=== PATIENT | female | born 1975 | race Two or more races ===

== ENCOUNTER 2016-07-20 01:10 | Emergency (ER) | payer OTHER ==
[~2016-07-20] VITALS: Ht 157.5 cm; Wt 77.1 kg
[~2016-07-20 01:10] MED LIST: CHOL10003 PO; CIPR500T94 PO; CLIN45GE TP; CYCL5TAB PO; DICY10CA3 PO; FERR325T31 PO; FERR325T58 PO; FOLI1TAB16 PO; HYDR-971 PO; HYDR25TA PO; HYDR25TA9 PO; LISI10TA2 PO; MESA1.2T PO; METO25TA9 PO; NAPR500T8 PO; OMEP40CA5 PO; ONDA4TAB10 SL; PANT40TA5 PO; POLY500P14 MC; TAMS0.4C97 PO; TOPI-24 PO; TRAM50TA PO; [UNRECOGNIZED DRUG - CODE] TP
[2016-07-20 01:20] VITALS: BP 150/83
[2016-07-20] MEDS ORDERED: PENI500T PO (01:51)
[2016-07-20] MEDS ORDERED: HYDR-2762 PO (01:51)
--- NOTE | 2016-07-20 01:51 | PHYS DOC ---
Past Medical History Past Medical History: Anemia, Hypertension Additional Past Medical Histor: CHOLITIS, BACK PROBLEMS Past Surgical History: Tubal ligation Additional Past Surgical Histo: KNEE SURGERY Alcohol Use: Rarely Drug Use: None Adult General Chief Complaint Chief Complaint: DENTAL PROBLEM [facility] HPI Patient is a 41 year old female who presents with complaint of dental pain and facial swelling. Patient states her facial swelling started last night and has worsened significantly this morning. Patient states that she broke a tooth approximately one month ago but did not start having pain until the past 2 days. Patient rates her pain currently as 7 out of 10. Patient denies any associated fevers. Patient states that she is having difficulty eating due to pain in her jaw. The patient states that she has been trying to contact her dentist over the past 3 days but has not been able to set up an appointment. Patient denies any shortness of breath, lightheadedness, or chest pain. Patient has not taken any medications to help with symptoms at this time. Review of Systems Review of Systems Constitutional: Denies fever or chills [] Eyes: Denies change in visual acuity, redness, or eye pain [] HENT: Denies nasal congestion or sore throat [] Respiratory: Denies cough or shortness of breath [] Cardiovascular: No additional information not addressed in HPI [] GI: Denies abdominal pain, nausea, vomiting, bloody stools or diarrhea [] : Denies dysuria or hematuria [] Musculoskeletal: Denies back pain or joint pain [] Integument: Denies rash or skin lesions [] Neurologic: Denies headache, focal weakness or sensory changes [] Endocrine: Denies polyuria or polydipsia [] Current Medications Current Medications Current Medications Medications (Trade) Dose Ordered Sig/Leni Start Time Stop Time Status Last Admin Dose Admin Acetaminophen/ Hydrocodone Bitart (Lortab 7.5/325) 1 tab 1X ONCE 07/20/16 02:15 07/20/16 02:15 DC 07/20/16 02:02 1 TAB Penicillin V Potassium (Veetid) 500 mg 1X ONCE 07/20/16 02:15 07/20/16 02:15 DC 07/20/16 02:01 500 MG Allergies Allergies Allergies Coded Allergies Type Severity Reaction Last Updated Verified No Known Drug Allergies 06/02/15 No Physical Exam Physical Exam Constitutional: Alert, afebrile, appears in mild discomfort. [] HENT: Mild left zygomatic soft tissue swelling, bilateral external ears normal, oropharynx moist, direct tenderness to palpation over tooth #12, no gingival fluctuance noted, no oral exudates, nose normal. [] Eyes: PERRLA, EOMI, conjunctiva normal, no discharge. [] Neck: Normal range of motion, no tenderness, supple, no stridor. [] Cardiovascular:Heart rate regular rhythm, no murmur [] Lungs & Thorax: Bilateral breath sounds clear to auscultation [] Abdomen: Bowel sounds normal, soft, no tenderness, no masses, no pulsatile masses. [] Skin: Warm, dry, no erythema, no rash. [] Extremities: No tenderness, no cyanosis, no clubbing, ROM intact, no edema. [] Neurologic: Alert and oriented X 3, normal motor function, normal sensory function, no focal deficits noted. [] Current Patient Data Vital Signs Vital Signs Date Time Temp Pulse Resp B/P Pulse Ox O2 Delivery O2 Flow Rate FiO2 07/20/16 02:02 20 99 Room Air 07/20/16 01:20 98.3 74 98.3 EKG EKG Not performed [] Radiology/Procedures Radiology/Procedures Not performed [] Course & Med Decision Making Course & Med Decision Making Pertinent Labs and Imaging studies reviewed. (See chart for details) Patient started on penicillin VK and [place]. The patient be prescribed these medications for treatment of early apical abscess. Advised follow-up with the patient's dentist in the next 3 days. Recommended return to emergency department for any worsening symptoms. Patient voiced understanding and in agreement with treatment plan. Dragon Disclaimer Dragon Disclaimer This electronic medical record was generated, in whole or in part, using a voice recognition dictation system. Departure Departure Impression: Primary Impression: Dental abscess Disposition: HOME, SELF-CARE Condition: IMPROVED Referrals: WAYNE NEWMAN MD (PCP) Patient Instructions: Dental Abscess Additional Instructions: Follow-up with your dentist in the next 3 days. Return to emergency department for any worsening symptoms. Scripts Hydrocodone Bit/Acetaminophen (Hydrocodone-Apap 7.5-325 )1 Each Tablet1 Tab PO Q4-6HRS PRN PAIN #20 TAB Ref 0 Prov:AJIT SULLIVAN MD 07/20/16 Penicillin V Potassium 500 Mg Tablet1 Tab PO QID #40 TAB Prov:AJIT SULLIVAN MD 07/20/16 AJIT SULLIVAN MD Jul 20, 2016 01:51
[2016-07-20] MEDS ORDERED: PENICILLIN V K 250 MG TABLET. PO ONE (02:15)
[2016-07-20] MEDS ORDERED: HYDROCODONE/APAP 7.5/325MG TABLET. PO ONE (02:15)
== END 2016-07-20 02:05 | disposition home or self-care (01) ==
LOC: ER 01:10
DX: K04.7 Periapical abscess without sinus (principal); I10 Essential (primary) hypertension
CPT/HCPCS: 99283

== ENCOUNTER 2017-03-12 21:48 | Emergency (ER) | payer OTHER ==
[~2017-03-12] VITALS: Ht 157.5 cm; Wt 81.6 kg
[~2017-03-12 21:48] MED LIST changes: +FERR-36 PO; -FERR325T31 PO; +HYDR-2762 PO; +METO-239 PO; -METO25TA9 PO; +PENI500T PO; -TOPI-24 PO; +TOPI25TA7 PO
--- NOTE | 2017-03-12 21:52 | PHYS DOC ---
Past Medical History Past Medical History: Anemia, Hypertension Additional Past Medical Histor: CHOLITIS, BACK PROBLEMS Past Surgical History: Tubal ligation Additional Past Surgical Histo: KNEE SURGERY Alcohol Use: Rarely Drug Use: None Adult General Chief Complaint Chief Complaint: ABDOMINAL PAIN HPI HPI Patient is a 41 year old female who presents with right-sided flank pain radiating down into her pelvis this started this morning. She states his been constant. She's had some nausea but denies any vomiting. She had a normal bowel movement this morning denies any blood in her stools. She states she's had a history kidney stones and colitis in the past. She denies any chest pain or shortness of breath. She denies any vaginal bleeding, she does state she has troubles urinating and has an appointment to see a consulting services project manager urologist in a week. Review of Systems Review of Systems Constitutional: Denies fever or chills [] Eyes: Denies change in visual acuity, redness, or eye pain [] HENT: Denies nasal congestion or sore throat [] Respiratory: Denies cough or shortness of breath [] Cardiovascular: No additional information not addressed in HPI [] GI: Denies abdominal pain, nausea, vomiting, bloody stools or diarrhea [] : Denies dysuria or hematuria [] Musculoskeletal: Denies back pain or joint pain [] Integument: Denies rash or skin lesions [] Neurologic: Denies headache, focal weakness or sensory changes [] Endocrine: Denies polyuria or polydipsia [] Current Medications Current Medications Current Medications Medications (Trade) Dose Ordered Sig/Leni Start Time Stop Time Status Last Admin Dose Admin Albuterol/ Ipratropium (Duoneb) 3 ml 1X ONCE 03/12/17 23:45 03/12/17 23:45 DC Ceftriaxone Sodium 50 ml @ 100 mls/hr 1X ONCE 03/12/17 23:00 03/12/17 23:29 DC 03/12/17 23:23 100 MLS/HR Info (Do NOT chart on this entry -- for MONITORING) 1 each PRN DAILY PRN 03/12/17 23:15 03/14/17 23:14 Iohexol (Omnipaque 300 Mg/ml) 75 ml 1X ONCE 03/12/17 23:15 03/12/17 23:16 DC 03/12/17 23:07 75 ML Morphine Sulfate 2 mg PRN Q15MIN PRN 03/12/17 22:15 03/13/17 22:14 03/12/17 22:16 2 MG Ondansetron HCl (Zofran) 4 mg 1X ONCE 03/12/17 22:15 03/12/17 22:16 DC 03/12/17 22:15 4 MG Sodium Chloride 1,000 ml @ 1,000 mls/hr Q1H 03/12/17 22:15 03/12/17 23:14 DC 03/12/17 22:28 1,000 MLS/HR Allergies Allergies Allergies Coded Allergies Type Severity Reaction Last Updated Verified No Known Drug Allergies 06/02/15 No Physical Exam Physical Exam Constitutional: Well developed, well nourished, no acute distress, non-toxic appearance. [] HENT: Normocephalic, atraumatic, bilateral external ears normal, oropharynx moist, no oral exudates, nose normal. [] Eyes: PERRLA, EOMI, conjunctiva normal, no discharge. [] Neck: Normal range of motion, no tenderness, supple, no stridor. [] Cardiovascular:Heart rate regular rhythm, no murmur [] Lungs & Thorax: Bilateral breath sounds clear to auscultation [] Abdomen: Bowel sounds normal, soft, tender to palpation in the right flank radiating down into the right lower quadrant, no masses, no pulsatile masses. [ ] Skin: Warm, dry, no erythema, no rash. [] Back: No tenderness, right sided CVA tenderness. [] Extremities: No tenderness, no cyanosis, no clubbing, ROM intact, no edema. [] Neurologic: Alert and oriented X 3, normal motor function, normal sensory function, no focal deficits noted. [] Psychologic: Affect normal, judgement normal, mood normal. [] Current Patient Data Vital Signs Vital Signs Date Time Temp Pulse Resp B/P (MAP) Pulse Ox O2 Delivery O2 Flow Rate FiO2 03/12/17 23:29 70 22 141/80 (100) 99 Room Air 03/12/17 22:02 98.5 98.5 Lab Values Laboratory Tests Test 03/12/17 21:06 03/12/17 21:59 03/12/17 22:20 POC Urine HCG, Qualitative Hcg negative (Negative) Urine Collection Type Unknown Urine Color Yellow Urine Clarity Clear Urine pH 7.0 Urine Specific Smyer <=1.005 Urine Protein 30 mg/dL (NEG-TRACE) Urine Glucose (UA) Negative mg/dL (NEG) Urine Ketones (Stick) Negative mg/dL (NEG) Urine Blood Small (NEG) Urine Nitrite Negative (NEG) Urine Bilirubin Negative (NEG) Urine Urobilinogen Dipstick 0.2 mg/dL (0.2 mg/dL) Urine Leukocyte Esterase Large (NEG) Urine RBC 3-5 /HPF (0-2) Urine WBC >40 /HPF (0-4) Urine Squamous Epithelial Cells Few /LPF Urine Bacteria Few /HPF (0-FEW) White Blood Count 12.0 x10^3/uL (4.0-11.0) H Red Blood Count 4.29 x10^6/uL (3.50-5.40) Hemoglobin 10.0 g/dL (12.0-15.5) L Hematocrit 31.3 % (36.0-47.0) L Mean Corpuscular Volume 73 fL (79-100) L Mean Corpuscular Hemoglobin 23 pg (25-35) L Mean Corpuscular Hemoglobin Concent 32 g/dL (31-37) Red Cell Distribution Width 17.6 % (11.5-14.5) H Platelet Count 293 x10^3/uL (140-400) Neutrophils (%) (Auto) 55 % (31-73) Lymphocytes (%) (Auto) 19 % (24-48) L Monocytes (%) (Auto) 5 % (0-9) Eosinophils (%) (Auto) 21 % (0-3) H Basophils (%) (Auto) 1 % (0-3) Neutrophils # (Auto) 6.6 x10^3uL (1.8-7.7) Lymphocytes # (Auto) 2.3 x10^3/uL (1.0-4.8) Monocytes # (Auto) 0.6 x10^3/uL (0.0-1.1) Eosinophils # (Auto) 2.5 x10^3/uL (0.0-0.7) H Basophils # (Auto) 0.1 x10^3/uL (0.0-0.2) Segmented Neutrophils % 49 % (35-66) Lymphocytes % 22 % (24-48) L Monocytes % 1 % (0-10) Eosinophils % 26 % (0-5) H Basophils % 2 % (0-3) Toxic Granulation Slight Platelet Estimate Adequate (ADEQUATE) Polychromasia Slight Hypochromasia Mod Anisocytosis Slight Microcytosis Mod Sodium Level 138 mmol/L (136-145) Potassium Level 3.7 mmol/L (3.5-5.1) Chloride Level 102 mmol/L (98-107) Carbon Dioxide Level 24 mmol/L (21-32) Anion Gap 12 (6-14) Blood Urea Nitrogen 12 mg/dL (7-20) Creatinine 0.8 mg/dL (0.6-1.0) Estimated GFR (Cockcroft-Gault) 78.7 Glucose Level 102 mg/dL (70-99) H Calcium Level 8.9 mg/dL (8.5-10.1) Total Bilirubin 0.2 mg/dL (0.2-1.0) Direct Bilirubin < 0.1 mg/dL (0.0-0.2) Aspartate Amino Transferase (AST) 21 U/L (15-37) Alanine Aminotransferase (ALT) 23 U/L (14-59) Alkaline Phosphatase 118 U/L (46-116) H Total Protein 8.2 g/dL (6.4-8.2) Albumin 3.7 g/dL (3.4-5.0) Laboratory Tests 03/12/17 22:20 Laboratory Tests 03/12/17 22:20 EKG EKG [] Radiology/Procedures Radiology/Procedures [facility] [address] [place] [address] IMAGING REPORT Signed PATIENT: CHIDI ERVIN ACCOUNT: [id number] : 1975 LOCATION: ER AGE: 41 SEX: F EXAM STATUS: REG ER ORD. PHYSICIAN: PRICE JOHNSON MD REASON: right sided abdominal pain PROCEDURE: CT ABD PELV W/ IV CONTRST ONLY CT ABD PELV W/ IV CONTRST ONLY dated 03/12/2017 11:06 PM Indication: Abdominal pain, nausea right-sided pain. Comparison: 01/13/2016 Technique: Contiguous axial imaging of the abdomen and pelvis performed after the administration of 75 cc Omnipaque 300. One or more of the following individualized dose reduction techniques were utilized for this examination: 1. Automated exposure control 2. Adjustment of the mA and/or kV according to patient size 3. Use of iterative reconstruction technique Findings: Limited images of lung bases are clear. Heart size within normal limits. No pleural or pericardial effusion. Liver, spleen, gallbladder, adrenal glands unremarkable. The pancreas is somewhat small and atrophic. No significant peripancreatic inflammatory stranding. There are collateral vessels at the splenic hilum. Portal vein and SMV are patent. There is mild right-sided hydronephrosis with proximal hydroureter. There is urothelial thickening and enhancement along the proximal right ureter. The mid to distal right ureter is not well visualized. There is no apparent calcific stone. No left-sided hydronephrosis or hydroureter. The right kidney is somewhat atrophic relative to the left side. Unopacified GI tract normal in caliber and contour. No focal bowel wall thickening. No inflammatory stranding in the mesentery. The appendix is normal in caliber. Images of the pelvis show mildly distended urinary bladder. No significant bladder wall thickening. Uterus and adnexa are unremarkable. No free fluid or lymphadenopathy. Bone windows show no acute findings. IMPRESSION: 1. Mild right-sided hydronephrosis, hydroureter and urothelial thickening, nonspecific. There is no calcific stone. Consider acute pyelonephritis or ascending ureteritis or chronic reflux. Right kidney is somewhat atrophic. 2. Otherwise no acute findings. Normal appendix. 3. Pancreatic atrophy could be related to prior episodes of pancreatitis. No acute inflammatory changes at this time. Electronically signed by: Gio Harris MD (03/12/2017 11:41 PM) [facility] DICTATED and SIGNED BY: GIO HARRIS MD DATE: 03/12/17 [id number] CC: PRICE JOHNSON MD; WAYNE NEWMAN MD ~ Impressions: Pyelonephritis Course & Med Decision Making Course & Med Decision Making Pertinent Labs and Imaging studies reviewed. (See chart for details) CT scan shows likely pyelonephritis without any stones or colitis. Also consistent with this. Patient feels better after a gram of Rocephin being discharged with 10 days of Levaquin and ODT Zofran. She has a follow-up appointment with nephrology that she's had set up prior. Return precautions given she is agreeable to the plan and being discharged in stable condition this time. Dragon Disclaimer Dragon Disclaimer This electronic medical record was generated, in whole or in part, using a voice recognition dictation system. Departure Departure Impression: Primary Impression: Pyelonephritis Disposition: 01 HOME, SELF-CARE Condition: STABLE Referrals: WAYNE NEWMAN MD (PCP) Patient Instructions: Pyelonephritis, Adult, [id number] Additional Instructions: You were seen tonight for your abdominal pain in your urine shows signs of infection, the CAT scan does not show any signs of colitis but it shows that you likely have a kidney infection. You were given IV antibiotics and your being discharged home with antibiotics for the next 10 days. Please follow-up with your consulting services project manager that you have an appointment with next week. If your pain gets worse you have uncontrolled nausea vomiting or other concerns please return back to emergency department. He also being discharged with some antinausea meds in case she need them. Scripts Ondansetron (ZOFRAN ODT) 4 Mg Tab.rapdis 1 TAB SL Q8HRS, #5 TAB Prov: PRICE JOHNSON MD 03/13/17 Levofloxacin (LEVAQUIN) 500 Mg Tablet 1 TAB PO DAILY, #10 TAB Prov: PRICE JOHNSON MD 03/13/17 PRICE JOHNSON MD Mar 12, 2017 21:52
[2017-03-12 22:10] LABS: BILIRUBIN,URINE NEGATIVE (NEG); GLUCOSE,URINE NEGATIVE (NEG); NITRITE,URINE NEGATIVE (NEG); PROTEIN,URINE 30 mg/dL (NEG-TRACE); UROBILINOGEN,URINE 0.2 mg/dL (0.2 mg/dL)
[2017-03-12] MEDS ORDERED: MORPHINE SULFATE 2 MG/ML DISP.SYRIN. IV/SQ PRN (22:15)
[2017-03-12] MEDS ORDERED: ONDANSETRON PF 4 MG/2 ML VIAL. IV ONE (22:15)
[2017-03-12] MEDS ORDERED: IV NORMAL SALINE 1000ML BAG 1,000 ML IV SCH (22:15)
[2017-03-12 22:17] LABS: BACTERIA,URINE FEW /HPF (0-FEW); SQUAMOUS EPITHELIAL CELL,UR FEW /LPF; WBC,URINE >40 /HPF (0-4)
[2017-03-12] MEDS ORDERED: NALT1TAB PO (22:22)
[2017-03-12] MEDS ORDERED: LEVO25TA4 PO (22:22)
[2017-03-12] MEDS ORDERED: HYDR25TA9 PO (22:22)
[2017-03-12] MEDS ORDERED: DOCU100C28 PO (22:22)
[2017-03-12] MEDS ORDERED: AMIT50TA PO (22:22)
[2017-03-12] MEDS ORDERED: MESA1.2T PO (22:22)
[2017-03-12] MEDS ORDERED: CITA20TA5 PO (22:22)
[2017-03-12 22:36] LABS: BASO # 0.1 x10^3/uL (0.0-0.2); BASO % 1 % (0-3); EOS % 21 % (0-3); HEMATOCRIT 31.3 % (36.0-47.0); LYMPH # 2.3 x10^3/uL (1.0-4.8); LYMPH % 19 % (24-48); MEAN CORPUSCULAR HEMOGLOBIN 23 pg (25-35); MEAN CORPUSCULAR HGB CONC 32 g/dL (31-37); MEAN CORPUSCULAR VOLUME 73 fL (79-100); MONO % 5 % (0-9); NEUT % 55 % (31-73); PLATELET COUNT 293 x10^3/uL (140-400); RED BLOOD COUNT 4.29 x10^6/uL (3.50-5.40); RED CELL DISTRIBUTION WIDTH 17.6 % (11.5-14.5)
[2017-03-12 22:52] LABS: ANION GAP 12 (6-14); BLOOD UREA NITROGEN 12 mg/dL (7-20); CALCIUM 8.9 mg/dL (8.5-10.1); CARBON DIOXIDE 24 mmol/L (21-32); CHLORIDE 102 mmol/L (98-107); CREATININE 0.8 mg/dL (0.6-1.0); GFR 78.7; GLUCOSE 102 mg/dL (70-99); POTASSIUM 3.7 mmol/L (3.5-5.1); SODIUM 138 mmol/L (136-145)
[2017-03-12 22:55] LABS: % BASOS 2 % (0-3); % EOS 26 % (0-5)
[2017-03-12 22:57] LABS: ALBUMIN 3.7 g/dL (3.4-5.0); ALK PHOS 118 U/L (46-116); ALT (SGPT) 23 U/L (14-59); AST (SGOT) 21 U/L (15-37); DIRECT BILIRUBIN < 0.1 mg/dL (0.0-0.2); TOTAL BILIRUBIN 0.2 mg/dL (0.2-1.0); TOTAL PROTEIN 8.2 g/dL (6.4-8.2)
[2017-03-12 22:59] LABS: ANISOCYTOSIS SLIGHT; HYPOCHROMIA MOD; MICROCYTOSIS MOD; PLT ESTIMATE ADEQUATE (ADEQUATE); POLYCHROMASIA SLIGHT; TOXIC GRANULATION SLIGHT
[2017-03-12] MEDS ORDERED: CONTRAST GIVEN MC PRN (23:15)
[2017-03-12] MEDS ORDERED: IOHEXOL 300 MG/ML 75 ML VIAL IV ONE (23:15)
[2017-03-12 23:29] VITALS: BP 141/80
--- NOTE | 2017-03-12 23:44 | RAD ---
CT ABD PELV W/ IV CONTRST ONLY dated 03/12/2017 11:06 PM Indication: Abdominal pain, nausea right-sided pain. Comparison: 01/13/2016 Technique: Contiguous axial imaging of the abdomen and pelvis performed after the administration of 75 cc Omnipaque 300. One or more of the following individualized dose reduction techniques were utilized for this examination: 1. Automated exposure control 2. Adjustment of the mA and/or kV according to patient size 3. Use of iterative reconstruction technique Findings: Limited images of lung bases are clear. Heart size within normal limits. No pleural or pericardial effusion. Liver, spleen, gallbladder, adrenal glands unremarkable. The pancreas is somewhat small and atrophic. No significant peripancreatic inflammatory stranding. There are collateral vessels at the splenic hilum. Portal vein and SMV are patent. There is mild right-sided hydronephrosis with proximal hydroureter. There is urothelial thickening and enhancement along the proximal right ureter. The mid to distal right ureter is not well visualized. There is no apparent calcific stone. No left-sided hydronephrosis or hydroureter. The right kidney is somewhat atrophic relative to the left side. Unopacified GI tract normal in caliber and contour. No focal bowel wall thickening. No inflammatory stranding in the mesentery. The appendix is normal in caliber. Images of the pelvis show mildly distended urinary bladder. No significant bladder wall thickening. Uterus and adnexa are unremarkable. No free fluid or lymphadenopathy. Bone windows show no acute findings. IMPRESSION: 1. Mild right-sided hydronephrosis, hydroureter and urothelial thickening, nonspecific. There is no calcific stone. Consider acute pyelonephritis or ascending ureteritis or chronic reflux. Right kidney is somewhat atrophic. 2. Otherwise no acute findings. Normal appendix. 3. Pancreatic atrophy could be related to prior episodes of pancreatitis. No acute inflammatory changes at this time. Electronically signed by: Gio Harris MD (03/12/2017 11:41 PM) [facility]
[2017-03-12] MEDS ORDERED: IPRATRPIUM/ALBUTEROL 0.5/2.5MG 3 ML NEBU. NEB ONE (23:45)
[2017-03-13] MEDS ORDERED: ONDA4TAB10 SL (00:02)
[2017-03-13] MEDS ORDERED: LEVO500T59 PO (00:02)
== END 2017-03-13 00:12 | disposition home or self-care (01) ==
LOC: ER 21:48
DX: N12 Tubulo-interstitial nephritis, not specified as acute or chronic (principal); I10 Essential (primary) hypertension; Z87.442 Personal history of urinary calculi; Z98.51 Tubal ligation status
CPT/HCPCS: 36415; 74177; 80048; 80076; 81001; 81025; 85007; 85025; 87086; 87186; 96365; 96375; 99285; J0690; J2270; J2405; J7030; Q9967

== ENCOUNTER 2020-04-01 20:59 | Emergency (ER) | payer SELFPAY ==
[~2020-04-01] VITALS: Ht 157.5 cm; Wt 85.5 kg
[~2020-04-01 20:59] MED LIST changes: +AMIT50TA PO; +CITA20TA6 PO; +DOCU100C28 PO; +HYDR-2145 PO; -HYDR-2762 PO; +HYDR-2765 PO; +HYDR-3164 PO; -HYDR-971 PO; -HYDR25TA9 PO; +LEVO25TA4 PO; +LEVO500T59 PO; +LIALDA1.2 GM PO; -MESA1.2T PO; +NALT1TAB PO; +OMEP40CA45 PO; -OMEP40CA5 PO; -PANT40TA5 PO; +PANT40TA77 PO
[2020-04-01 21:03] VITALS: BP 175/70
[2020-04-01] MEDS ORDERED: CYCL5TAB PO (21:19)
[2020-04-01] MEDS ORDERED: LIDO700A21 TP (21:19)
[2020-04-01] MEDS ORDERED: IBUP-1007 PO (21:19)
--- NOTE | 2020-04-01 21:19 | PHYS DOC ---
Past Medical History Past Medical History: Anemia, Hypertension, Kidney Stone Additional Past Medical Histor: CHOLITIS, BACK PROBLEMS Past Surgical History: Tubal ligation Additional Past Surgical Histo: KNEE SURGERY Smoking Status: Never Smoker Alcohol Use: Rarely Drug Use: None General Adult EDM: Chief Complaint: BACK PAIN - NO INJURY HPI: HPI: The history was obtained from the patient. Patient is a 44-year-old female with PMH chronic back pain who presents with a chief complaint of acute on chronic back pain. Patient states 3 days ago while sweeping and cleaning she strained her back. States she was moving a heavy object she states. She notes pain starting in her right paraspinal region of the lumbar area that radiates down her right leg. States this is similar to previous pain. She has tried 3 ibuprofen tablets with minimal relief. Denies urinary symptoms. Denies syncope. Does show me an MRI paper from an outpatient study that does show mild disc bulging at the L3-L4 region. No other pathology identified on her MRI imaging. Denies chest pain or shortness of breath. States the pain is aching in nature as well as shooting. Made worse with movement. Patient denies any urinary retention, stool incontinence, saddle anesthesia, history of IV drug use, or history of cancer. Review of Systems: Review of Systems: Constitutional: Denies fever or chills. [] Eyes: Denies change in visual acuity. [] HENT: Denies nasal congestion or sore throat. [] Respiratory: Denies cough or shortness of breath. [] Cardiovascular: Denies chest pain or edema. [] GI: Denies abdominal pain, nausea, vomiting, bloody stools or diarrhea. [] : Denies dysuria. [] Musculoskeletal: Positive for back pain Integument: Denies rash. [] Neurologic: Denies headache, focal weakness or sensory changes. [] Endocrine: Denies polyuria or polydipsia. [] Lymphatic: Denies swollen glands. [] Psychiatric: Denies depression or anxiety. [] Heart Score: Risk Factors: Risk Factors: DM, Current or recent (<one month) smoker, HTN, HLP, family history of CAD, obesity. Risk Scores: Score 0 - 3: 2.5% MACE over next 6 weeks - Discharge Home Score 4 - 6: 20.3% MACE over next 6 weeks - Admit for Clinical Observation Score 7 - 10: 72.7% MACE over next 6 weeks - Early Invasive Strategies Allergies: Allergies: Allergies Coded Allergies Type Severity Reaction Last Updated Verified No Known Drug Allergies 06/02/15 No Physical Exam: PE: Constitutional: Well developed, well nourished, no acute distress, non-toxic appearance. [] HENT: Normocephalic, atraumatic, bilateral external ears normal, oropharynx moist, no oral exudates, nose normal. [] Eyes: PERRLA, EOMI, conjunctiva normal, no discharge. [] Neck: Normal range of motion, no tenderness, supple, no stridor. [] Cardiovascular:Heart rate regular rhythm, no murmur [] Lungs & Thorax: Bilateral breath sounds clear to auscultation [] Abdomen: soft, no tenderness, no masses, no pulsatile masses. [] Skin: Warm, dry, no erythema, no rash. [] Back: + 5/5 motor strength in dorsiflexion and plantarflexion of the great toes bilaterally. Sensation intact between the webbing of the first and second toes bilaterally. Reproducible right paraspinal lumbar tenderness to palpation. Hypertonic musculature palpated. Extremities: No tenderness, no cyanosis, no clubbing, ROM intact, no edema. [] Neurologic: Alert and oriented X 3, normal motor function, normal sensory function, no focal deficits noted. [] Psychologic: Affect normal, judgement normal, mood normal. [] EKG: EKG: [] Radiology/Procedures: Radiology/Procedures: [] Course & Med Decision Making: Course & Med Decision Making Pertinent Labs and Imaging studies reviewed. (See chart for details) [] Patient is a well-appearing 44-year-old female presents with chief complaint of acute on chronic right-sided back pain. No red flag signs or symptoms regarding her back pain. Imaging will be deferred given the nontraumatic nature of her injuries. Urinalysis will also be deferred given she has no symptoms. She was treated symptomatically in the emergency department and did get relief. She will be discharged home with medication. She was instructed to follow-up with her primary care physician in the next 2 to 3 days. Return precautions discussed and understood. She is stable for discharge home. Brisa Disclaimer: Brisa Disclaimer: This electronic medical record was generated, in whole or in part, using a voice recognition dictation system. Departure Departure Impression: Primary Impression: Acute exacerbation of chronic low back pain Disposition: HOME, SELF-CARE Condition: STABLE Referrals: WAYNE NEWMAN MD (PCP) Patient Instructions: Back Exercises, Back Pain, Adult Additional Instructions: Please follow-up with your primary care physician in the next 2 to 3 days. Scripts Lidocaine (Lidocaine PATCH ) 1 Each Adh..patch 1 EACH TP DAILY for FOR LOCAL PAIN for 5 Days, #5 PATCH REMOVE AFTER 12 HOURS. 4% Prov: NILAM HOOD DO 04/01/20 Ibuprofen (IBUPROFEN) 600 Mg Tablet 600 MG PO PRN Q6HRS PRN for PAIN, #20 TAB take with food or milk Prov: NILAM HOOD DO 04/01/20 Cyclobenzaprine Hcl (CYCLOBENZAPRINE HCL) 5 Mg Tablet 5 MG PO PRN TID PRN for PAIN, #10 TAB Prov: NILAM HOOD DO 04/01/20 NILAM HOOD DO Apr 01, 2020 21:19
[2020-04-01] MEDS ORDERED: LIDOCAINE (700MG/PATCH) PATCH. TD ONE (21:30)
[2020-04-01] MEDS ORDERED: KETOROLAC 30 MG/ML VIAL. IM ONE (21:30)
[2020-04-01] MEDS ORDERED: diazePAM 5 MG TABLET PO ONE (21:30)
== END 2020-04-01 21:37 | disposition home or self-care (01) ==
LOC: ER 20:59
DX: G89.29 Other chronic pain (principal); M54.5 Low back pain; I10 Essential (primary) hypertension; Z87.442 Personal history of urinary calculi; Z98.51 Tubal ligation status
CPT/HCPCS: 96372; 99283; J1885

== ENCOUNTER 2020-04-17 17:38 | Emergency (ER) | payer SELFPAY ==
[~2020-04-17] VITALS: Ht 157.5 cm; Wt 85.0 kg
[~2020-04-17 17:38] MED LIST changes: +IBUP-1007 PO; +LIDO700A21 TP
[2020-04-17 19:16] VITALS: BP 157/88
[2020-04-17 20:03] LABS: BILIRUBIN,URINE SMALL (NEG); CLARITY,URINE CLOUDY; COLOR,URINE RED; NITRITE,URINE POSITIVE (NEG); PROTEIN,URINE 100 mg/dL (NEG-TRACE)
[2020-04-17 20:07] LABS: RBC,URINE TNTC /HPF (0-2)
[2020-04-17 20:09] LABS: BACTERIA,URINE FEW /HPF (0-FEW); HYALINE CASTS, URINE OCCASIONAL /HPF
[2020-04-17] MEDS ORDERED: methylPREDNISolone SOD SUCC PF 125 MG/2 ML VIAL. IM ONE (20:30)
[2020-04-17] MEDS ORDERED: KETOROLAC 60 MG/2 ML VIAL. IM ONE (20:30)
[2020-04-17] MEDS ORDERED: HYDROcodone/APAP 5/325MG 1 TAB TABLET PO ONE (20:30)
[2020-04-17] MEDS ORDERED: TRAM-48 PO (20:32)
[2020-04-17] MEDS ORDERED: NAPR-683 PO (20:32)
[2020-04-17] MEDS ORDERED: METH4TAB2 PO (20:32)
--- NOTE | 2020-04-17 20:32 | PHYS DOC ---
Past Medical History Past Medical History: Anemia, Hypertension, Hyperthyroid, Kidney Stone Additional Past Medical Histor: COLITIS, BACK PROBLEMS Past Surgical History: Tubal ligation Additional Past Surgical Histo: KNEE SURGERY Smoking Status: Never Smoker Alcohol Use: Rarely Drug Use: None General Adult EDM: Chief Complaint: BACK PAIN - NO INJURY HPI: HPI: Patient is a 44 year old female presents with a chief complaint of back pain. Patient states her current back pain is chronic in nature. Is located mid thora cic and lumbar. Patient states onset of her pain either or Sunday. She states at the time she was cleaning her birdcage when pain suddenly started. Patient's pain again is midthoracic and lumbar region. Patient states she has pain that radiates down both legs. Patient states she feels as if her right hip is swelling and the pain radiates down her right leg. Patient states she has some numbness and tingling down her left leg. Patient states she was prescribed ibuprofen and a muscle relaxant and has had no relief with these medications. Patient denies any saddle anesthesia or loss of bowel or bladder. Patient ambulated into the ER with a normal steady gait. Again patient states current pain is chronic and similar to previous exacerbations. Patient will be treated with Solu-Medrol and hydrocodone in the emergency department. She will be prescribed naproxen and Medrol Dosepak hydrocodone and advised to take previously prescribed muscle relaxant. Review of Systems: Review of Systems: Constitutional: Denies fever or chills. [] Eyes: Denies change in visual acuity. [] HENT: Denies nasal congestion or sore throat. [] Respiratory: Denies cough or shortness of breath. [] Cardiovascular: Denies chest pain or edema. [] GI: Denies abdominal pain, nausea, vomiting, bloody stools or diarrhea. [] : Denies dysuria. [] Musculoskeletal: Positive back pain Integument: Denies rash. [] Neurologic: Denies headache, focal weakness or sensory changes. [Positive paresthesia] Endocrine: Denies polyuria or polydipsia. [] Lymphatic: Denies swollen glands. [] Psychiatric: Denies depression or anxiety. [] Heart Score: Risk Factors: Risk Factors: DM, Current or recent (<one month) smoker, HTN, HLP, family history of CAD, obesity. Risk Scores: Score 0 - 3: 2.5% MACE over next 6 weeks - Discharge Home Score 4 - 6: 20.3% MACE over next 6 weeks - Admit for Clinical Observation Score 7 - 10: 72.7% MACE over next 6 weeks - Early Invasive Strategies Allergies: Allergies: Allergies Coded Allergies Type Severity Reaction Last Updated Verified No Known Drug Allergies 06/02/15 No Physical Exam: PE: Constitutional: Well developed, well nourished, no acute distress, non-toxic appearance. [] HENT: Normocephalic, atraumatic, bilateral external ears normal, oropharynx moist, no oral exudates, nose normal. [] Eyes: PERRLA, EOMI, conjunctiva normal, no discharge. [] Neck: Normal range of motion, no tenderness, supple, no stridor. [] Cardiovascular:Heart rate regular rhythm, no murmur [] Lungs & Thorax: Bilateral breath sounds clear to auscultation [] Abdomen: Bowel sounds normal, soft, no tenderness, no masses, no pulsatile masses. [] Skin: Warm, dry, no erythema, no rash. [] Back: No tenderness, no CVA tenderness. [] Extremities: No tenderness, no cyanosis, no clubbing, ROM intact, no edema. [Ambulates with a steady gait. ] Neurologic: Alert and oriented X 3, normal motor function, normal sensory function, no focal deficits noted. [No saddle anesthesia no loss of bowel or bladder ambulates with a steady gait] Psychologic: Affect normal, judgement normal, mood normal. [] Current Patient Data: Labs: Laboratory Tests Test 04/17/20 19:55 04/17/20 20:07 Urine Collection Type Unknown Urine Color Red Urine Clarity Cloudy Urine pH 8.0 (<5.0-8.0) Urine Specific Ava 1.025 (1.000-1.030) Urine Protein 100 mg/dL (NEG-TRACE) Urine Glucose (UA) Negative mg/dL (NEG) Urine Ketones (Stick) Trace mg/dL (NEG) Urine Blood Large (NEG) Urine Nitrite Positive (NEG) Urine Bilirubin Small (NEG) Urine Urobilinogen Dipstick 1.0 mg/dL (0.2 mg/dL) Urine Leukocyte Esterase Moderate (NEG) Urine RBC Tntc /HPF (0-2) Urine WBC 11-20 /HPF (0-4) Urine Squamous Epithelial Cells Few /LPF Urine Bacteria Few /HPF (0-FEW) Urine Hyaline Casts Occasional /HPF Urine Mucus Mod /LPF POC Urine HCG, Qualitative Hcg negative (Negative) Vital Signs: Vital Signs Date Time Temp Pulse Resp B/P (MAP) Pulse Ox O2 Delivery O2 Flow Rate FiO2 04/17/20 19:16 98.3 65 18 157/88 (111) 100 Room Air 98.3 EKG: EKG: [] Radiology/Procedures: Radiology/Procedures: [] Course & Med Decision Making: Course & Med Decision Making Pertinent Labs and Imaging studies reviewed. (See chart for details) [] Dragon Disclaimer: Dragon Disclaimer: This electronic medical record was generated, in whole or in part, using a voice recognition dictation system. Departure Departure Impression: Primary Impression: Acute exacerbation of chronic low back pain Disposition: 01 DC HOME SELF CARE/HOMELESS Condition: STABLE Referrals: WAYNE NEWMAN MD (PCP) Patient Instructions: Back Pain, Adult Scripts Naproxen (NAPROSYN) 500 Mg Tablet 500 MG PO BID for 14 Days, #28 TAB Prov: EVANGELISTA ABREU I DO 04/17/20 Tramadol Hcl (ULTRAM) 50 Mg Tablet 1 TAB PO PRN Q6HRS PRN for pain MDD 4 Tablet(s) for 7 Days, #28 TAB 0 Refills Prov: EVANGELISTA ABREU I DO 04/17/20 Methylprednisolone (MEDROL) 4 Mg Tab.ds.pk 1 PKG PO UD, #1 PKG Prov: EVANGELISTA ABREU I DO 04/17/20 EVANGELISTA ABREU DO Apr 17, 2020 20:32
== END 2020-04-17 21:27 | disposition home or self-care (01) ==
LOC: ER 17:38
DX: G89.29 Other chronic pain (principal); M54.5 Low back pain; R60.0 Localized edema; R20.2 Paresthesia of skin; I10 Essential (primary) hypertension; E05.90 Thyrotoxicosis, unspecified without thyrotoxic crisis or storm; Z87.442 Personal history of urinary calculi; Z98.51 Tubal ligation status; Z98.890 Other specified postprocedural states
CPT/HCPCS: 81001; 81025; 87086; 96372; 99284; J1885; J2930